=== PATIENT | female | born 1970 | race African-American/Black ===

== ENCOUNTER 2021-02-08 20:28 | Emergency (ER) | payer SELFPAY ==
[~2021-02-08] VITALS: Ht 165.1 cm; Wt 68.0 kg
[2021-02-08] MEDS ORDERED: CARDIZEM CD120 MG PO (22:20)
[2021-02-08] MEDS ORDERED: HYDROCHLOROT25 MG PO (22:20)
[2021-02-08 22:25] VITALS: BP 144/99
[2021-02-08] MEDS ORDERED: [UNRECOGNIZED DRUG - OTHER] PO (22:30)
== END 2021-02-08 22:34 | disposition home or self-care (01) | DRG 305 ==
LOC: ED 20:28
DX: I10 Essential (primary) hypertension (principal); T46.5X6A Underdosing of other antihypertensive drugs, initial encounter; Z91.128 Patient's intentional underdosing of medication regimen for other reason; F41.9 Anxiety disorder, unspecified; F17.210 Nicotine dependence, cigarettes, uncomplicated